=== PATIENT | female | born 1945 | race Caucasian/White ===

== ENCOUNTER 2020-07-28 23:30 | Emergency (ER) | payer OTHER ==
[~2020-07-28] VITALS: Ht 160 cm; Wt 63.5 kg
[~2020-07-28 23:30] MED LIST: CELEXA 20 MG TA20 M1 PO; FISH OIL 1,0001 EAC8 PO; INDERAL LA60 MG PO; MULTIVITAMINS1 EAC7 PO; PEPCID20 MG PO; PROPRANOLOL 1010 M1 PO; ZOFRAN ODT4 MG PO
[2020-07-28] MEDS ORDERED: OMEPRAZOLE 20 M20 M1 PO (23:52)
[2020-07-29] MEDS ORDERED: HYDROCODON-ACE1 EAC7 PO (02:53)
[2020-07-29 03:00] VITALS: BP 132/62
== END 2020-07-29 03:00 | disposition home or self-care (01) ==
LOC: ER 23:30
DX: S42.291A Other displaced fracture of upper end of right humerus, initial encounter for closed fracture (principal); K21.9 Gastro-esophageal reflux disease without esophagitis; Z79.899 Other long term (current) drug therapy; W10.8XXA Fall (on) (from) other stairs and steps, initial encounter; Y93.01 Activity, walking, marching and hiking; Y92.89 Other specified places as the place of occurrence of the external cause; Y99.9 Unspecified external cause status